=== PATIENT | male | born 1975 | race Two or more races ===

== ENCOUNTER 2024-07-06 10:19 | Emergency (ER) | payer MEDICAID, SELFPAY ==
[2024-07-06 10:23] VITALS: BP 128/77; RESP 18; TEMP 36.5; O2SAT 98
--- NOTE | 2024-07-06 10:24 | XR_ITS ---
Examination: AP chest single view Technique: AP portable semiupright chest single view Exam date and time: July 06, 2024 1048 hrs. Indications: Onset chest pain today Findings: Normal heart size Lungs are clear. Moderate osteopenia Impression: No active disease
--- NOTE | 2024-07-06 10:24 | EKG_ITS ---
[facility] Test Date: 2024-07-06 Pat Name: AMBER RAYMUNDO Department: Room: - Gender: Male Product Development Chemist: : 1975 Requested By: True Randolph Order Number: [id number] Reading MD: True Randolph Measurements Intervals Hubert[place] Rate: 92 P: 64 RI: 153 QRS: 32 QRSD: 97 T: 62 QT: 369 QTc: 459 Interpretive Statements SINUS RHYTHM Compared to ECG 05/27/2024 11:16:56 No significant changes /store/S0/[id number].pdf
[2024-07-06 10:31] VITALS: PULSE 90; RESP 18; O2SAT 98
--- NOTE | 2024-07-06 10:31 | EDNOTE_ITS ---
ED Syncope RME/HPI General Chief Complaint: Syncope / Near Syncope Stated Complaint: SYNCOPAL EPISODE Time Seen by Provider: 07/06/24 10:23 Arrival date/time: 07/06/24 10:19 RME / HPI RME / HPI narrative: HPI Patient: 48-year-old male presenting to the ED. Chief Complaint: Nausea, weakness, and vomiting (3 episodes). History: Reports feeling weak all over after helping push a stalled car. Denies fevers, chills. Endorses methamphetamine use, last used last night. Physical examination, EKG, labs, troponin, and chest x-ray are all normal. DDX * Vasovagal episode: Given the symptoms and normal workup, this is the most likely diagnosis. * Dehydration: Due to vomiting and methamphetamine use. * Electrolyte imbalance: Could be contributing to weakness and nausea. * Drug-induced symptoms: Methamphetamine use can cause nausea and weakness. * Cardiac issues: Though less likely given the normal EKG and troponin, should still be considered. MDM * Confirm diagnosis: Ensure no other underlying causes with a thorough history and physical examination. * Management options: * Hydration: Administer IV fluids to address dehydration. * Rest: Allow the patient to rest and recover. * Monitor: Observe for any changes in symptoms or vital signs. * Education: [place]walking Guide the patient on avoiding methamphetamine use and ensuring proper hydration. * Follow-up: Arrange for follow-up care to monitor recovery and address any ongoing issues. Related Data Previous Rx's ?Medication ?Instructions ?Recorded famotidine 20 mg tablet (Pepcid AC) 20 mg PO QDAY #30 tabs 09/23/17 sulfamethoxazole 800 1 tab PO BID #10 tabs 07/26/18 mg-trimethoprim 160 mg tablet amoxicillin 875 mg-potassium 1 tab PO Q12H #20 tabs 05/15/20 clavulanate 125 mg tablet (Augmentin) naproxen 500 mg tablet (Naprosyn) 500 mg PO BID PRN pain #30 tabs 12/23/20 acetaminophen 500 mg tablet 1,000 mg (2 x 500 mg) PO Q6H PRN 08/12/23 (Tylenol Extra Strength) pain #30 tabs ibuprofen 600 mg tablet 600 mg PO Q6H PRN pain #30 tabs 08/12/23 tamsulosin 0.4 mg capsule (Flomax) 0.4 mg PO QDAY #7 caps 08/12/23 Allergies Allergy/AdvReac Type Severity Reaction Status Date / Time No Known Allergies Allergy Verified 07/06/24 10:38 Review of Systems Review of Systems Narrative Review of Systems: Gen: No fever, no chills, no weight loss EYES: No discharge, no visual changes, no pain HEENT: No ear pain, no congestion, no sore throat PULM: No shortness of breath, no cough, no congestion CV: No chest pain, no dyspnea on exertion, no palpitations GI:+nausea, vomiting. no diarrhea, no pain, no constipation : No frequency, no urgency, no dysuria Musc/skel: No joint pain, no back pain Skin: No rash Psyc: No hallucinations, no depression Heme/Lymph: No easy bleeding or bruising tendencies Neuro: +weakness, no headache ED Exam Narrative Physical exam: GEN. APPEARANCE: The patient is alert awake oriented X-3 in minimal distress, lying down comfortably, does not look ill/toxic. Patient has good eye contact. Patient is cooperative. VITALS: All vitals were reviewed and the pulse ox is 98% on room air which is normal according to my interpretation. HEENT: Normocephalic, atraumatic. Pupils are equal and reactive. Oral mucosa is moist. Patent Nares NECK: Supple, nontender, no thyromegaly, no meningismus, no JVD, no step offs CHEST: Symmetrical, atraumatic, and with equal expansion , Nontender on palpation no deformity and no crepitus. CARDIOVASCULAR: Heart regular rhythm no murmur or gallop rub or extra beats. LUNGS: Clear to auscultation bilaterally with symmetrical chest rise. No laboring tachypnea or wheezing. No intercostal subcostal retraction. No rales and no rhonchi. ABDOMEN: Soft, flat, nontender to palpation, no guarding or rebound tenderness. There are no abnormal masses palpated. Active and normal bowel sounds. EXTREMITIES: Nontender. No edema. No cyanosis. Patient is able to move all 4 extremities well, with full ROM and good CSM. SKIN: Warm and dry, no jaundice or rashes noted. MUSCULOSKELETAL: No lubar or midline bony tenderness. There is no CVA tenderness. No paraspinal muscle spasm or tenderness. NEURO: Patient is BEE x 4, Cranial nerves II through XII grossly intact. There is no focal neurologic deficits noted. GCS is 15, PNS and CIVIL DRAFTER appear grossly intact. PSYCHIATRIC: Patient is in normal mood and affect, cooperative, no SI or HI or hallucinations. Course Quality Measures none Orders Category Date Time Status Head Charrer STAT Care 07/06/24 10:24 Completed Continuous Pulse Oximetry ONCE Care 07/06/24 10:24 Completed EKG (ED ONLY) *Do not use* NOW Care 07/06/24 10:24 Completed Insert IV STAT Care 07/06/24 10:24 Completed EKG (ED Only) Stat Exams 07/06/24 10:24 Draft XR chest 1V portable Stat Exams 07/06/24 10:24 Completed B-Type Natriuretic Peptide Stat Lab 07/06/24 11:25 Completed CBC Stat Lab 07/06/24 11:25 Completed Comprehensive Metabolic Panel Stat Lab 07/06/24 11:25 Completed Magnesium Stat Lab 07/06/24 11:25 Completed Troponin I Stat Lab 07/06/24 11:25 Completed Vital Signs Vital signs: Vital Signs Temperature 97.7 F 07/06/24 10:23 Respiratory Rate 18 07/06/24 10:23 Blood Pressure 128/77 07/06/24 10:23 Pulse Oximetry (%) 98 07/06/24 10:23 Oxygen Delivery Method Room Air 07/06/24 10:23 Syncope Patient data External records reviewed:: [facility] previous records and EMS form Clinical information provided by:: patient and EMS Social determinants that could affect healthcare access:: substance use Patient has the following chronic illnesses:: none How is presenting disease/condition affected by chronic disease/condition?: uneffected by Evaluation data The following diagnostics were reviewed and interpreted by me:: lab results and radiology exam(s) Lab and/or radiology exams considered but not ordered:: none Interpretation Summary: Ordering Physician: True Randolph MD Date of Service: 07/06/24 Procedure(s): XR chest 1V portable Accession Number(s): [id number] cc: True Randolhp MD; Rod Cantu MD~ Examination: AP chest single view Technique: AP portable semiupright chest single view Exam date and time: July 06, 2024 1048 hrs. Indications: Onset chest pain today Findings: Normal heart size Lungs are clear. Moderate osteopenia Impression: No active disease Dictated By: Rod Cantu MD Signed By: <Electronically signed by Rod Cantu MD in OV> 07/06/24 1057 Medications / Prescriptions Medications or Prescriptions considered but not ordered:: none Medication administrations:: none Consultations Consultation(s) initiated? (list below): No Diagnosis Syncope Differential Diagnosis: other (vasovagal, dysrhythmia, anemia, drug use. ) Most likely diagnosis given after review of the tests above:: vasovagal syncope Admission Indicated Admission indicated?: not indicated Admission Request Was there a request for admission?: No Disposition Plan Disposition Plan: Discharge Discharge Attestation Discharge Attestation: The patient and all family members were given an opportunity to ask questions and understood the discharge instructions. Discharge instructions specifically effects, indications for sooner follow up or return to the emergency department, and the expected course of current diagnosis. Patient condition: Stable Discharge Plan Plan Patient Disposition: HOME (Self Care) Patient condition on transfer: Stable Prescriptions/Referrals Prescriptions/Med Rec: No Action famotidine [Pepcid AC] 20 mg tablet 20 mg PO QDAY Qty: 30 0RF sulfamethoxazole-trimethoprim 800-160 mg Tablet 1 tab PO BID Qty: 10 0RF amoxicillin-pot clavulanate [Augmentin] 875-125 mg tablet 1 tab PO Q12H Qty: 20 0RF naproxen [Naprosyn] 500 mg tablet 500 mg PO BID PRN (Reason: pain) Qty: 30 0RF tamsulosin [Flomax] 0.4 mg capsule 0.4 mg PO QDAY Qty: 7 0RF ibuprofen 600 mg tablet 600 mg PO Q6H PRN (Reason: pain) Qty: 30 0RF acetaminophen [Tylenol Extra Strength] 500 mg tablet 1,000 mg PO Q6H PRN (Reason: pain) Qty: 30 0RF Referrals: No Primary/Family,Physician [Primary Care Provider] - In 1 week Problem List Clinical Impression: Vasovagal syncope Patient/Caregiver Discharge Instructions Education Materials: ED Fainting, Vagal Reaction Print Language: Bulgarian Stand Alone Forms: [employer] Award Info., Patient Portal Info Letter
[2024-07-06 10:37] VITALS: BMI 25.8
[2024-07-06 11:59] LABS: Basophils # (Auto) 0.1 Thou/mm3 (0.0-0.2); Basophils % (Auto) 1 % (0-2.5); Eosinophils # (Auto) 0.2 Thou/mm3 (0.0-0.5); Eosinophils % (Auto) 2 % (0-10); Hematocrit 42.8 % (41.0-53.0); Hemoglobin 14.8 g/dL (13.5-16.0); Immature Granulocytes % (Auto) 0 % (0-0); Immature Granulocytes Auto 0.04 Thou/mm3 (0.00-0.00); Lymphocytes # (Auto) 1.9 Thou/mm3 (1.0-4.8); Lymphocytes % (Auto) 19 % (10-50); Mean Corpuscular HGB Conc 34.6 g/dl (31.0-37.0); Mean Corpuscular Hemoglobin 29.6 pg (25.0-35.0); Mean Corpuscular Volume 86 fL (80-100); Monocytes # (Auto) 0.4 Thou/mm3 (0.0-0.8); Monocytes % (Auto) 4 % (0-12); Neutrophils # (Auto) 7.1 Thou/mm3 (1.8-7.7); Neutrophils % (Auto) 73 % (37-80); Nucleated Red Blood Cell % 0 /100 WBC (0); Platelet Count 236 Thou/mm3 (140-440); RDW Standard Deviation 38.4 fL (35.1-43.9); White Blood Count 9.8 Thou/mm3 (3.8-10.6)
[2024-07-06 12:18] LABS: Alanine Aminotransferase 30 U/L (10-49); Albumin, Serum 4.5 gm/dL (3.5-5.0); Albumin/Globulin Ratio 1.7 (1.2-2.2); Alkaline Phosphatase 73 U/L (46-116); Anion Gap 4 (7-16); Aspartate Amino Transferase 31 U/L (0-34); BUN/Creatinine Ratio 16 Ratio (12-20); Bilirubin,Total 0.6 mg/dL (0.3-1.2); Blood Urea Nitrogen 23 mg/dL (9-23); Calcium 9.7 mg/dL (8.3-10.6); Calcium (Corrected) 9.7 mg/dL (8.5-10.1); Carbon Dioxide 30.3 mMol/L (20.0-31.0); Chloride 101 mMol/L (98-107); Creatinine (Component) 1.4 mg/dL (0.6-1.3); Estimated Creatinine Clearance 62.4 mL/min (>60); Globulin 2.6 gm/dL (2.3-3.5); Glucose 114 mg/dL (74-106); Magnesium 2.1 mg/dL (1.6-2.6); Osmolality,Calculated 274 (275-295); Potassium 4.2 mMol/L (3.4-5.1); Sodium 135 mMol/L (136-145); Total Protein 7.1 gm/dL (5.7-8.2); Troponin I < 0.020 ng/mL (0.0-0.045); eGFR > 60 See Note
[2024-07-06 12:25] LABS: B-Type Natriuretic Peptide < 20 pg/mL (0-100)
== END 2024-07-06 12:48 | disposition home or self-care (01) ==
PROVIDERS: Emergency Provider Emergency Medicine
DX: R55 Syncope and collapse (principal); R11.2 Nausea with vomiting, unspecified; R53.1 Weakness
CPT/HCPCS: 36415; 71045; 80053; 83735; 83880; 84484; 85025; 93005; 99283

== ENCOUNTER 2025-04-07 15:51 | Emergency (ER) | payer MEDICAID, SELFPAY ==
[2025-04-07 15:52] VITALS: BMI 25.8
[2025-04-07 15:58] VITALS: BP 111/72; PULSE 111; RESP 18; TEMP 36.9; O2SAT 96
--- NOTE | 2025-04-07 16:11 | EDNOTE_ITS ---
<Statement entered by Effie Gabriel MD - 04/19/25 11:15> As co-signing physician, I was present and available for consult prn. I concur with the plan and care as documented by the midlevel provider. ED Allergic Reaction RME/HPI General Chief complaint: Allergic Reaction Stated complaint: ALLERGIC REACTION /ITCHY x 2 HOURS Time Seen by Provider: 04/07/25 16:04 Source: patient Arrival date/time: 04/07/25 15:51 49-year-old male with no known medical history presents to the emergency room with a chief complaint of itchiness, and a generalized rash to the upper extremities x 2 hours. Mode of arrival: ambulatory Limitations: no limitations Related Data Previous Rx's ?Medication ?Instructions ?Recorded famotidine 20 mg tablet (Pepcid AC) 20 mg PO QDAY #30 tabs 09/23/17 sulfamethoxazole 800 1 tab PO BID #10 tabs mg-trimethoprim 160 mg tablet amoxicillin 875 mg-potassium 1 tab PO Q12H #20 tabs clavulanate 125 mg tablet (Augmentin) naproxen 500 mg tablet (Naprosyn) 500 mg PO BID PRN pa in #30 tabs 12/23/20 acetaminophen 500 mg tablet 1,000 mg (2 x 500 mg) PO Q 6H PRN 08/12/23 (Tylenol Extra Strength) pain #30 tabs ibuprofen 600 mg tablet 600 mg PO Q6H PRN pain #30 t abs 08/12/23 tamsulosin 0.4 mg capsule (Flomax) 0.4 mg PO QDAY #7 c aps 08/12/23 Allergies Allergy/AdvReac Type Severity Reaction Status Date / Time No Known Allergies Allergy Verified 04/07/25 15:54 Review of Systems Review of Systems Systems Reviewed: All systems reviewed, normal except as documented Constitutional Constitutional: Reports system reviewed and no additional complaints, except as documented, Denies fatigue, Denies fever(s), Denies headache(s) and Denies weakness Eyes Eyes: Reports system reviewed and no additional complaints, except as documented, Denies blurry vision and Denies change in vision ENT Ears, Nose, Mouth, and Throat: Reports system reviewed and no additional complaints, except as documented, Denies otalgia, Denies headache(s), Denies nasal congestion, Denies throat swelling and Denies vertigo Cardiovascular Cardiovascular: Reports system reviewed and no additional complaints, except as documented, Denies chest pain, Denies dyspnea and Denies dyspnea on exertion Respiratory Respiratory: Reports system reviewed and no additional complaints, except as documented, Denies chest congestion, Denies cough, Denies dyspnea, Denies dyspnea on exertion and Denies wheezing Gastrointestinal Gastrointestinal: Reports system reviewed and no additional complaints, except as documented, Denies abdominal pain, Denies cramping, Denies nausea and Denies vomiting Genitourinary Genitourinary: Reports system reviewed and no additional complaints, except as documented, Denies dysuria and Denies hematuria Musculoskeletal Musculoskeletal: Reports system reviewed and no additional complaints, except as documented and Denies back pain Integumentary/Breasts Skin/Breast: Reports system reviewed and no additional complaints, except as documented, Reports pruritus, Reports rash and Denies wounds Neurologic Neurologic: Reports system reviewed and no additional complaints, except as documented, Denies confusion, Denies headache(s), Denies lack of coordination, Denies vertigo and Denies weakness Psychiatric Psychiatric: Reports system reviewed and no additional complaints, except as documented, Denies anxiety, Denies confusion, Denies depression, Denies paranoia, Denies suicidal ideation and Denies tactile hallucinations Endocrine Endocrine: Reports system reviewed and no additional complaints, except as documented and Denies fatigue Hematologic/Lymphatic Hematologic/Lymphatic: Reports system reviewed and no additional complaints, except as documented and Denies lymphadenopathy Allergic/Immunologic Allergic/Immunologic: Reports system reviewed and no additional complaints, except as documented, Denies throat swelling, Denies urticaria and Denies wheezing Past Medical History Past Medical History NEUROLOGIC: Negative Neurological Disorders or Seizures CARDIAC: Negative Cardiac Disorders or Congestive Heart Failure RESPIRATORY: Negative Chronic Obstructive Pulmonary Disease (COPD) or Asthma GASTROINTESTINAL: Negative Gastrointestinal Disorders, Hepatitis or Colorectal Cancer GENITOURINARY: Negative Genitourinary Disorders, Renal Disease or Prostate Cancer REPRODUCTIVE: Negative Testicular Cancer MUSCULOSKELETAL: Negative Musculoskeletal Disorders or Bone Cancer ENDOCRINE: Negative Endocrine Disorders, Diabetes Mellitus Type 1 or Diabetes Mellitus Type 2 HEMATOLOGIC: Negative Blood Disorders or Sickle Cell Disease OTHER HISTORY: Negative Autoimmune Disease, Down Syndrome, Developmental Delay, Shingles, Blood Transfusions, Anesthesia Reactions, Organ Transplant, MRSA, VRSA, Vancomycin-Resistant Enterococci, Clostridium Difficile, Colorectal Cancer, Lung Cancer, Prostate Cancer or Testicular Cancer Family History FAMILY HISTORY: Positive Family Cancer (BREAST AND LIVER (MOTHER)); Negative Family Psychiatric Problems, Family Respiratory Disorders, Family Cardiac Disorders, Family Gastrointestinal Problems, Family Surgery or Family Anesthesia Reaction Surgical History SURGICAL: Negative Cardiac Surgery, Endocrine Surgery, Ear Surgery, Abdominal Surgery, Nephrectomy, Joint Replacement, Neurologic Surgery, Vasectomy or Organ Transplant Social History SMOKING STATUS: Current every day smoker SECOND HAND EXPOSURE: Yes SUBSTANCE USE: methamphetamine ED Exam General Limitations: Present no limitations General appearance: Present alert and in no apparent distress Head Head exam: Present atraumatic Eye Eye exam: Present normal appearance, PERRL and EOMI ENT ENT exam: Present normal exam, normal oropharynx and mucous membranes moist Neck Neck exam: Present normal inspection, full ROM and trachea midline Chest Chest inspection: Present normal inspection and symmetric chest wall rise Respiratory Respiratory exam: Present normal lung sounds bilaterally; Absent respiratory distress, wheezes, stridor, accessory muscle use or prolonged expiratory phase Cardiovascular Cardiovascular exam: Present regular rate, normal rhythm and normal heart sounds; Absent tachycardia Abdominal Exam Abdominal exam: Present soft and normal bowel sounds Extremities Exam Extremities exam: Present normal inspection and full ROM Back Exam Back exam: Present normal inspection and full ROM Neurological Exam Neurological exam: Present alert, oriented X3 and CN II-XII intact Psychiatric Psychiatric exam: Present normal affect and normal mood Skin Skin exam: Present warm, dry, intact and normal color Course Quality Measures none Orders Category Date Time Status DiphenhydrAMINE [Benadryl] Med 04/07/25 16:10 Discontinued 25 mg PO X1 ONE Famotidine [Pepcid] Med 04/07/25 16:10 Discontinued 20 mg PO X1 ONE dexAMETHasone TAB [Decadron Tab] Med 04/07/25 16:10 Discontinued 10 mg PO X1 ONE Vital Signs Vital signs: Vital Signs Temperature 98.4 F 04/07/25 15:58 Pulse Rate 111 H 04/07/25 15:58 Respiratory Rate 18 04/07/25 15:58 Blood Pressure 111/72 04/07/25 15:58 Pulse Oximetry (%) 96 04/07/25 15:58 Oxygen Delivery Method Room Air 04/07/25 15:58 Allergic Reaction MDM Narrative MDM Narrative:: 49-year-old male with no known medical history presents to the emergency room with a chief complaint of itchiness, and a generalized rash to the upper extremities x 2 hours. Patient is hemodynamically stable and in no apparent distress Physical examination shows clear bilateral lung sounds there is no wheezing stridor or any abnormal breath sounds The patient is in no respiratory distress. He is nontoxic-appearing. Antihistamines were given with significant improvement to the patient's symptoms. During reevaluation the patient had eloped but accidentally left his phone in the emergency room. We were able to contact his and contact him to return to the emergency room to belt picker his phone. Patient states his symptoms were a lot better that is why he eloped. Patient was discharged and educated to follow-up with primary care provider in the next 24 to 48 hours and return to the emergency room for any evidence of worsening signs or symptoms Patient data External records reviewed:: [facility] previous records Clinical information provided by:: patient Social determinants that could affect healthcare access:: none Patient has the following chronic illnesses:: No chronic illness How is presenting disease/condition affected by chronic disease/condition?: no chronic disease Evaluation data The following diagnostics were reviewed and interpreted by me:: lab results and radiology exam(s) Lab and/or radiology exams considered but not ordered:: Labs and radiology exams considered in order Interpretation Summary: N/A Medications / Prescriptions Medications or Prescriptions considered but not ordered:: Medication given Medication administrations:: Medication Administration History Discontinued Medications Dexamethasone (Dexamethasone 4 Mg Tablet) 10 mg PO X1 ONE Stop: 04/07/25 16:11 Last Admin: 04/07/25 16:28 Dose: 10 mg Documented By: OA Diphenhydramine HCl (Diphenhydramine Elix 25 Mg/10 Ml Udc) 25 mg PO X1 ONE Stop: 04/07/25 16:11 Last Admin: 04/07/25 16:27 Dose: 25 mg Documented By: OA Famotidine (Famotidine 20 Mg Tablet) 20 mg PO X1 ONE Stop: 04/07/25 16:11 Last Admin: 04/07/25 16:28 Dose: 20 mg Documented By: OA Medication given Consultations Consultation(s) initiated? (list below): No Diagnosis Differential Diagnosis allergic reaction: anaphylaxis, allergic reaction, angioedema, contact dermatitis and urticaria Most likely diagnosis given after review of the tests above:: Allergic reaction Admission Indicated Admission indicated?: not indicated Admission Request Was there a request for admission?: No Disposition Plan Disposition Plan: Discharge Discharge Attestation Discharge Attestation: The patient and all family members were given an opportunity to ask questions and understood the discharge instructions. Discharge instructions specifically effects, indications for sooner follow up or return to the emergency department, and the expected course of current diagnosis. Patient condition: Stable Discharge Plan Plan Patient Disposition: HOME (Self Care) Discharge Disposition comment: Stable Prescriptions/Referrals Prescriptions/Med Rec: No Action famotidine [Pepcid AC] 20 mg tablet 20 mg PO QDAY Qty: 30 0RF sulfamethoxazole-trimethoprim 800-160 mg Tablet 1 tab PO BID Qty: 10 0RF amoxicillin-pot clavulanate [Augmentin] 875-125 mg tablet 1 tab PO Q12H Qty: 20 0RF naproxen [Naprosyn] 500 mg tablet 500 mg PO BID PRN (Reason: pain) Qty: 30 0RF tamsulosin [Flomax] 0.4 mg capsule 0.4 mg PO QDAY Qty: 7 0RF ibuprofen 600 mg tablet 600 mg PO Q6H PRN (Reason: pain) Qty: 30 0RF acetaminophen [Tylenol Extra Strength] 500 mg tablet 1,000 mg PO Q6H PRN (Reason: pain) Qty: 30 0RF Problem List Clinical Impression: Allergic reaction Patient/Caregiver Discharge Instructions Additional Instructions: Please follow-up with your primary care provider in the next 24 to 48 hours For any evidence of worsening signs or symptoms return to the emergency room immediately Print Language: Occitan Stand Alone Forms: [employer]oon Award Info., Patient Portal Info Letter PA/[employer] Supervising Physician PA/[employer] Supervising Physician: Dr. GABRIEL
[2025-04-07] MEDS: DiphenhydrAMINE ELIX 25 MG/10 ML UDC PO (16:27)
[2025-04-07] MEDS: FAMOTIDINE 20 MG TABLET PO (16:28)
== END 2025-04-07 18:47 | disposition home or self-care (01) ==
LOC: SERX 17:09
PROVIDERS: Emergency Provider Nurse Practitioner Family
DX: R21 Rash and other nonspecific skin eruption (principal)
CPT/HCPCS: 99283; J8540; A9270